=== PATIENT | female | born 1945 | race Caucasian/White ===

== ENCOUNTER 2022-07-28 14:35 | Emergency (ER) | payer MEDICARE, SELFPAY ==
--- NOTE | ~2022-07-28 | CT_ITS ---
EXAMINATION: CT HEAD WITHOUT CONTRAST CLINICAL INFORMATION: Dizziness COMPARISON: None available. TECHNIQUE: Contiguous axial imaging was performed from the skull base to vertex without intravenous administration of contrast. This CT examination was performed using dose optimization techniques as appropriate, variously including the following: *Automated exposure control *Adjustment of mA and/or kV according to patient size (this includes techniques or standardized protocols for targeted exams where dose is matched to indication/reason for exam; i.e. extremities or head) *Use of iterative reconstruction technique DLP: 596 mGy-cm FINDINGS: There is no evidence of acute intracranial hemorrhage or territorial infarction. No abnormal mass effect or midline shift is seen. [place] to white matter differentiation is well preserved. No extra-axial fluid collections are identified. The ventricles are normal in size. No abnormal attenuation in the brain parenchyma. No acute calvarial fracture.. Paranasal sinuses and mastoid air cells are well-aerated. CT/CT head/brain wo IV con IMPRESSION: No CT evidence of acute intracranial hemorrhage or edematous territorial infarction. Etiology of the patient's symptoms has not been determined by noncontrast CT. Additional imaging as clinically warranted.
[2022-07-28 14:59] VITALS: BP 146/74; PULSE 61; RESP 17; TEMP 36.2; O2SAT 100; BMI 24.5
--- NOTE | 2022-07-28 15:02 | ED_ITS ---
HPI - General Adult General Chief complaint: Dizziness <SABINA Overton - Last Filed: 07/28/22 15:03> Stated complaint: Dizziness sent by walk in <SABINA Overton - Last Filed: 07/28/22 15:03> Time Seen by Provider: 07/28/22 18:03 <SABINA Overton - Last Filed: 07/28/22 15:03> Source: patient <Mohit Diaz MD - Last Filed: 07/28/22 19:07> Mode of arrival: ambulatory <Mohit Diaz MD - Last Filed: 07/28/22 19:07> Limitations: no limitations <Mohit Diaz MD - Last Filed: 07/28/22 19:07> History of Present Illness HPI narrative: 76-year-old female presents with dizziness. Her symptoms started several weeks ago. Symptoms are intermittent. They are moderate to severe. They are worse when lying on her left side. The symptoms do not radiate. There is no nausea vomiting. There has been no falls or trauma. No focal neurologic defici ts. She does report some hearing changes the left side. She also reports some blurred vision of the left eye but that is since cataract surgery was performed. She also complains of a moderate left-sided headache. She describes as a migraine. There is no photo or phonophobia. There is no clear relieving or exacerbating features. The pain does not radiate. Is no nausea vomiting. Patient attempted to get into ENT but not until October. <Mohit Diaz MD - Last Filed: 07/28/22 19:07> Related Data Home medications: Home Medications Medication Instructions Recorded Confirmed ibuprofen 800 mg tablet 800 mg PO TID 07/28/22 isosorbide dinitrate 10 mg tablet 10 mg PO BID 07/28/22 levothyroxine 125 mcg tablet mcg PO 07/28/22 metoprolol succinate 25 mg 25 mg PO DAILY 07/28/22 tablet,extended release 24 hr metoprolol succinate 50 mg 50 mg PO DAILY 07/28/22 tablet,extended release 24 hr rosuvastatin 10 mg tablet 10 mg PO BEDTIME 07/28/22 tacrolimus 0.1 % topical ointment topical 07/28/22 Previous Rx's Medication Instructions Recorded meclizine 25 mg tablet 25 mg PO TID PRN dizziness #14 tabs 07/28/22 ondansetron 4 mg disintegrating 4 mg PO Q8H PRN nausea and 07/28/22 tablet vomiting #10 tabs <SABINA Overton - Last Filed: 07/28/22 15:03> Allergies/adverse reactions: Allergies Allergy/AdvReac Type Severity Reaction Status Date / Time aspirin Allergy Unknown bleed Verified 07/28/22 13:52 <SABINA Overton - Last Filed: 07/28/22 15:03> [facility] Social History Social History: Social History Alcohol intake: current Patient Tobacco Use Status: Former Tobacco user Smoked in Last 30 Days: No Use of substances other than those prescribed or required for medical reasons: No Advance Directives: No Advance Directives Information Provided: No <SABINA Overton - Last Filed: 07/28/22 15:03> Physical Exam ED Vital Signs: Vital Signs - 24 hr 07/28/22 14:59 07/28/22 17:53 Temperature 97.2 F Pulse Rate 61 66 Respiratory Rate 17 20 Blood Pressure 146/74 H Pulse Oximetry 100 99 Oxygen Delivery Method Room Air Room Air BMI result Body Mass Index 24.5 <SABINA Overton - Last Filed: 07/28/22 15:03> Vital Signs - 24 hr 07/28/22 14:59 07/28/22 17:53 Temperature 97.2 F Pulse Rate 61 66 Respiratory Rate 17 20 Blood Pressure 146/74 H Pulse Oximetry 100 99 Oxygen Delivery Method Room Air Room Air BMI result Body Mass Index 24.5 <Mohit Diaz MD - Last Filed: 07/28/22 19:07> GEN: Well developed, no acute distress, alert, oriented HEENT: Normocephalic, atraumatic, normal external ears, nose appears normal, no oropharyngeal edema or exudates Eyes: Normal to appearance, no nystagmus Neck: Supple, no lymphadenopathy Respiratory: Talks in complete sentences, no respiratory distress, clear to auscultation bilaterally Cardiovascular: Regular rate and rhythm, no murmurs rubs or gallops Abdomen: Soft, nontender, nondistended, no guarding, no rebound Back: No CVA tenderness Extremities: No clubbing cyanosis or edema Neurologic: No focal neurologic deficits, cranial nerves 2-12 intact, strength is 5/5 bilaterally, gait normal Skin: No rash <Mohit Diaz MD - Last Filed: 07/28/22 19:07> Course Course Course Narrative: RME performed by Felicia Tellez PA-C. Patient is a 76 year old assigned female at presenting to the emergency department with dizziness and feeling like her ears are full. Patient was seen in the urgent care where they d etermined that her ears were clear and she should have a head CT. Labs and imaging ordered. Patient placed back in the waiting room pending room availability and results. <SABINA Overton - Last Filed: 07/28/22 15:03> Reevaluation(s) Reevaluation #1: Laboratory analysis not reveal any definite etiology of her symptoms. However, patient does describe left headache. This could be concerning for temporal arteritis. Will order an ESR at this time. <Mohit Diaz MD - Last Filed: 07/28/22 19:07> Time: 18:20 <Mohit Diaz MD - Last Filed: 07/28/22 19:07> Reevaluation #2: ESR is back. His 12. There is no evidence of temporal arteritis. I discussed all results and discharge instructions with the patient. She is ready to go home. <Mohit Diaz MD - Last Filed: 07/28/22 19:07> Time: 19:07 <Mohit Diaz MD - Last Filed: 07/28/22 19:07> Medical Decision Making Medical Decision Making MDM Narrative: 76-year-old female presents with vertigo and headache. Symptoms started several weeks ago. They have been progressively getting worse. Examination revealed no focal neurologic deficits. There is no nystagmus. There is no evidence of acute otitis media or externa. Possible diagnoses include migraine, vertigo, peripheral vertigo, BPPV, labyrinthitis, vestibular neuritis, Meniere's disease, temporal arteritis. Patient will have lab work and a CT scan to rule out mass effect. Will re-evaluate patient. Patient does not want any medications at this time as she is otherwise asymptomatic. <Mohit Diaz MD - Last Filed: 07/28/22 19:07> Differential Diagnosis Differential Diagnoses: The differential diagnosis associated with the presentation includes ( migraine, vertigo, peripheral vertigo, BPPV, labyrinthitis, vestibular neuritis, Meniere's disease, temporal arteritis) <Mohit Diaz MD - Last Filed: 07/28/22 19:07> Vertigo, headache <Mohit Diaz MD - Last Filed: 07/28/22 19:07> Admission/Observation Consideration of admission/observation: Escalation of care including admission/observation considered <Mohit Diaz MD - Last Filed: 07/28/22 19:07> Lab Data MDM Lab Attestation statement: I reviewed the patient's lab results. <Mohit Diaz MD - Last Filed: 07/28/22 19:07> Result Diagrams: 07/28/22 15:08 07/28/22 15:08 <SABINA Overton - Last Filed: 07/28/22 15:03> Labs: Lab Results 07/28/22 07/28/22 07/28/22 Range/Units 15:08 15:08 18:20 WBC 8.1 (4.8-10.8) X10*3/uL RBC 4.51 (4.20-5.50) X10*6/uL Hgb 13.8 (12.0-16.0) g/dl Hct 41.7 (37.0-47.0) % MCV 92.5 (80.0-98.0) fL MCH 30.6 (27.0-33.0) pg MCHC 33.1 (31.0-35.0) g/dl RDW 13.7 (11.0-16.0) % Plt Count 269 (160-400) X10*3/uL MPV 9.7 (9.4-12.3) fL Immature Gran % (Auto) 0.4 (0.0-0.4) % Neut % (Auto) 66.1 (45-73) % Lymph % (Auto) 20.8 (20-40) % [place] % (Auto) 9.5 (2-11) % Eos % (Auto) 2.5 (0-4) % Baso % (Auto) 0.7 (0-2) % Lymph # (Auto) 1.7 (1.2-4.9) X10*3/uL [place] # (Auto) 0.8 (0.1-1.2) X10*3/uL Eos # (Auto) 0.2 (0.0-0.4) X10*3/uL Baso # (Auto) 0.1 (0.0-0.2) X10*3/uL Abs Immat Gran (auto) 0.03 (0.00-0.03) X10*3/uL Absolute Neuts (auto) 5.4 (2.0-8.3) x10*3/uL Absolute Nucleated RBC 0.000 (0.0-0.012) X10*3/uL Nucleated RBC % (auto) 0.0 (0.0-0.2) /100WBC ESR 12 (0-20) MM/HR Sodium 141 (135-145) mmol/L Potassium 4.6 (3.3-5.1) mmol/L Chloride 109 H (96-108) mmol/L Carbon Dioxide 25 (22-29) mmol/L Anion Gap 12 (12-20) BUN 21 H (9-16) mg/dL Creatinine 1.10 (0.5-1.4) mg/dL Estim Creat Clear Calc 40.7 Estimated GFR 48 Random Glucose 93 (60-115) mg/dL Calcium 8.9 (8.4-10.2) mg/dL Magnesium 2.3 (1.6-2.6) mg/dL Total Bilirubin 0.5 (0.0-1.0) mg/dL AST 20 (5-31) U/L ALT 24 (0-31) U/L Alkaline Phosphatase 92 (39-117) U/L Total Protein 7.0 (6.5-8.0) g/dL Albumin 3.8 (3.5-5.0) g/dL <SABINA Overton - Last Filed: 07/28/22 15:03> Lab Results 07/28/22 07/28/22 07/28/22 Range/Units 15:08 15:08 18:20 WBC 8.1 (4.8-10.8) X10*3/uL RBC 4.51 (4.20-5.50) X10*6/uL Hgb 13.8 (12.0-16.0) g/dl Hct 41.7 (37.0-47.0) % MCV 92.5 (80.0-98.0) fL MCH 30.6 (27.0-33.0) pg MCHC 33.1 (31.0-35.0) g/dl RDW 13.7 (11.0-16.0) % Plt Count 269 (160-400) X10*3/uL MPV 9.7 (9.4-12.3) fL Immature Gran % (Auto) 0.4 (0.0-0.4) % Neut % (Auto) 66.1 (45-73) % Lymph % (Auto) 20.8 (20-40) % [place] % (Auto) 9.5 (2-11) % Eos % (Auto) 2.5 (0-4) % Baso % (Auto) 0.7 (0-2) % Lymph # (Auto) 1.7 (1.2-4.9) X10*3/uL [place] # (Auto) 0.8 (0.1-1.2) X10*3/uL Eos # (Auto) 0.2 (0.0-0.4) X10*3/uL Baso # (Auto) 0.1 (0.0-0.2) X10*3/uL Abs Immat Gran (auto) 0.03 (0.00-0.03) X10*3/uL Absolute Neuts (auto) 5.4 (2.0-8.3) x10*3/uL Absolute Nucleated RBC 0.000 (0.0-0.012) X10*3/uL Nucleated RBC % (auto) 0.0 (0.0-0.2) /100WBC ESR 12 (0-20) MM/HR Sodium 141 (135-145) mmol/L Potassium 4.6 (3.3-5.1) mmol/L Chloride 109 H (96-108) mmol/L Carbon Dioxide 25 (22-29) mmol/L Anion Gap 12 (12-20) BUN 21 H (9-16) mg/dL Creatinine 1.10 (0.5-1.4) mg/dL Estim Creat Clear Calc 40.7 Estimated GFR 48 Random Glucose 93 (60-115) mg/dL Calcium 8.9 (8.4-10.2) mg/dL Magnesium 2.3 (1.6-2.6) mg/dL Total Bilirubin 0.5 (0.0-1.0) mg/dL AST 20 (5-31) U/L ALT 24 (0-31) U/L Alkaline Phosphatase 92 (39-117) U/L Total Protein 7.0 (6.5-8.0) g/dL Albumin 3.8 (3.5-5.0) g/dL <Mohit Diaz MD - Last Filed: 07/28/22 19:07> Independent Interpretation I performed an independent interpretation of an: CT Scan (CT head, no acute disease process) <Mohit Diaz MD - Last Filed: 07/28/22 19:07> Radiology Impression Discussion of test interpretation with radiology: I have reviewed the radiologist's reading. ( CT/CT head/brain wo IV con IMPRESSION: No CT evidence of acute intracranial hemorrhage or edematous territorial infarction. Etiology of the patient's symptoms has not been determined by noncontrast CT. Additional imaging as clinically warranted. Dictated By:Ayaz Yee) <Mohit Diaz MD - Last Filed: 07/28/22 19:07> Tests considered The following testing was considered but not selected: MRI <Mohit Diaz MD - Last Filed: 07/28/22 19:07> Prescription Management I considered prescription management with: Other (Antivert) <Mohit Diaz MD - Last Filed: 07/28/22 19:07> Chronic Conditions Patient?s care impacted by: Hypertension <Mohit Diaz MD - Last Filed: 07/28/22 19:07> Discharge Plan Discharge Clinical Impression: Dizziness, Headache <SABINA Overton - Last Filed: 07/28/22 15:03> Patient Disposition: Home, Self-Care <SABINA Overton - Last Filed: 07/28/22 15:03> Instructions: Vertigo (ED), Acute Headache (ED), Dizziness (ED) <SABINA Overton - Last Filed: 07/28/22 15:03> Prescriptions: New meclizine 25 mg tablet 25 mg PO TID PRN (Reason: dizziness) Qty: 14 0RF ondansetron 4 mg tablet,disintegrating 4 mg PO Q8H PRN (Reason: nausea and vomiting) Qty: 10 0RF No Action levothyroxine 125 mcg tablet PO rosuvastatin 10 mg tablet 10 mg PO BEDTIME metoprolol succinate 50 mg tablet extended release 24 hr 50 mg PO DAILY ibuprofen 800 mg tablet 800 mg PO TID tacrolimus 0.1 % ointment topical isosorbide dinitrate 10 mg tablet 10 mg PO BID metoprolol succinate 25 mg tablet extended release 24 hr 25 mg PO DAILY <SABINA Overton - Last Filed: 07/28/22 15:03> Referrals: Angelo Gaviria MD [Primary Care Provider] - 1 week <SABINA Overton - Last Filed: 07/28/22 15:03>
[2022-07-28 15:13] LABS: MANUAL DIFF FLAG NO
[2022-07-28 15:14] LABS: Basophils Absolute Auto 0.1 X10*3/uL (0.0-0.2); Basophils Percent Auto 0.7 % (0-2); Eosinophils Absolute Auto 0.2 X10*3/uL (0.0-0.4); Eosinophils Percent Auto 2.5 % (0-4); Hematocrit 41.7 % (37.0-47.0); Hemoglobin 13.8 g/dl (12.0-16.0); Imm Gran Abs Auto 0.03 X10*3/uL (0.00-0.03); Imm Gran Pct Auto 0.4 % (0.0-0.4); Lymphocytes Absolute Auto 1.7 X10*3/uL (1.2-4.9); Lymphocytes Percent Auto 20.8 % (20-40); Mean Corpuscular HGB Conc 33.1 g/dl (31.0-35.0); Mean Corpuscular Hemoglobin 30.6 pg (27.0-33.0); Mean Corpuscular Volume 92.5 fL (80.0-98.0); Mean Platelet Volume 9.7 fL (9.4-12.3); Monocytes Absolute Auto 0.8 X10*3/uL (0.1-1.2); Monocytes Percent Auto 9.5 % (2-11); Neutrophils Absolute Auto 5.4 x10*3/uL (2.0-8.3); Neutrophils Percent Auto 66.1 % (45-73); Platelet Count 269 X10*3/uL (160-400); Red Blood Count 4.51 X10*6/uL (4.20-5.50); Red Cell Distribution Width 13.7 % (11.0-16.0); White Blood Count 8.1 X10*3/uL (4.8-10.8)
[2022-07-28 15:34] LABS: Alanine Aminotransferase 24 U/L (0-31); Albumin Level 3.8 g/dL (3.5-5.0); Alkaline Phosphatase 92 U/L (39-117); Anion Gap 12 (12-20); Aspartate Amino Transferase 20 U/L (5-31); Bilirubin Total 0.5 mg/dL (0.0-1.0); Blood Urea Nitrogen 21 mg/dL (9-16); Calcium 8.9 mg/dL (8.4-10.2); Carbon Dioxide 25 mmol/L (22-29); Chloride 109 mmol/L (96-108); Creatinine Clr Calc Pharmacy 40.7; Estimated Glomerular Filt Rate 48; Glucose Random 93 mg/dL (60-115); Magnesium 2.3 mg/dL (1.6-2.6); Potassium 4.6 mmol/L (3.3-5.1); Sodium 141 mmol/L (135-145)
[2022-07-28 17:53] VITALS: PULSE 66; RESP 20; O2SAT 99
[2022-07-28 19:03] LABS: Erythrocyte Sedimentation Rate 12 MM/HR (0-20)
[2022-07-28 19:23] VITALS: BP 154/79; PULSE 74; RESP 14; TEMP 36.4; O2SAT 100
--- NOTE | 2022-07-28 19:23 | PC.NURSE ---
Pt aox4 in no apparent distress. Discharge instructions reviewed with pt. Pt verbalizes understanding.
== END 2022-07-28 19:24 | disposition home or self-care (01) ==
PROVIDERS: Physician Assistant Medical; Emergency Provider Emergency Medicine; PCP Family Medicine
DX: R42 Dizziness and giddiness (principal); R51.9 Headache, unspecified; Z79.02 Long term (current) use of antithrombotics/antiplatelets; Z79.899 Other long term (current) drug therapy
CPT/HCPCS: 36415; 70450; 80053; 83735; 85025; 85652; 99284

== ENCOUNTER 2023-02-08 09:18 | Outpatient (AMB) | payer MEDICARE, SELFPAY ==
--- NOTE | 2023-02-08 09:43 | MHC.OFFWIV ---
Intake Vital Signs 02/08/23 09:45 Weight 154 lb BP 120/70 Blood Pressure Location Rt brachial Position Sitting Pulse 63 Pulse Source Pulse Oximeter Pulse Oximetry (%) 96 Oxygen Delivery Method Room Air Intake Visit Reasons: EST/cough,concerns of lyme(masked lobby) Intake Note: Patient here for cough and coughing up yellow phlegm, chest pain and very fatigued. she also has a concern of possible lyme disease as she was doing yard work about 1 month ago and a few weeks later she noticed a big red [place] with a dot in the middle on that area. Patient Tobacco Use Status: Former Tobacco user Allergies aspirin Allergy (Unknown, Verified 02/08/23 09:48) bleed Do you need a note to return to daycare/school/sports/work: No HPI HPI Comments History of Present Illness Details 77-year-old female who presents for cough. Patient has had a productive cough for the last days. Denies fevers chills history of pneumonia. In addition she also like to recheck from heart disease. She someone the grass, ago noticed a bull's-eye rash did not think much of it since then she has been experiencing increasing drained pain rashes and fatigue. [facility] Social History Alcohol intake: current Patient Tobacco Use Status: Former Tobacco user Review of Systems Const All systems reviewed & are unremarkable except as noted in HPI and below Resp Reports cough and Reports excessive phlegm production Skin/Breast Reports rash Physical Exam Vital Signs: Last Vital Signs Pulse 63 02/08/23 09:45 BP 120/70 02/08/23 09:45 Pulse Ox 96 02/08/23 09:45 Oxygen Delivery Method Room Air 02/08/23 09:45 Const General: healthy appearing, comfortable, no acute distress and alert Orientation/consciousness: patient oriented x3 Limitations: no limitations HEENT Head: Yes normal to inspection Ears: hearing grossly normal bilaterally Resp Effort & Inspection: normal respiratory effort and able to speak in complete sentences Auscultation: clear to auscultation bilaterally Cardio Rate: regular rate Skin General skin exam: no rashes or lesions noted Neuro General: patient oriented x3 Extrem General: Yes normal to inspection Assessment & Plan Assessment & Plan (1) Cough: Code(s): R05.9 - Cough, unspecified Plan VSs found exam patient presents alert and oriented no acute distress exam is otherwise unremarkable noted above. Will provide CXR and lyme testing. Discharge instructions, follow up and treatment are discussed with patient in my usual fashion. Alternatives in treatment are also discussed. The patient will return for worsening symptoms or as needed. Advised that any labs/imaging ordered will be followed up on and contact made if further treatment needed. Counseled that patient's condition may require further evaluation and/or treatment. Symptoms of concern for worsening disorder discussed in detail in my customary manner. Patient does verbalize understanding of the plan, there are no apparent barriers to communication. The patient is given the opportunity to ask questions and have them answered to his/her satisfaction Orders: Orders XR chest 2V Today R05.9 - Cough, unspecified Lyme IgG/IgM w/reflex to WB Today R21 - Rash and other nonspecific skin eruption Coding Level of Care Code Est Pt Level 3 (79487) Diagnoses Cough R05.9
[2023-02-08 09:45] VITALS: BP 120/70; PULSE 63; O2SAT 96
== END 2023-02-08 10:28 | disposition home or self-care (01) ==
PROVIDERS: PCP Family Medicine; Visit Provider Physician Assistant
DX: R05.9 Cough, unspecified (principal)
CPT/HCPCS: 99213

== ENCOUNTER 2023-02-08 10:13 | Outpatient (REF) | payer MEDICARE, SELFPAY ==
--- NOTE | ~2023-02-08 | XR_ITS ---
EXAMINATION: XR CHEST CLINICAL INFORMATION: Cough COMPARISON: None available. TECHNIQUE: 2 views of the chest were obtained. FINDINGS: No significant abnormality is noted involving the heart, lungs, mediastinum, bony thorax or soft tissues. XR/XR chest 2V IMPRESSION: No acute disease.
[2023-02-09 22:23] LABS: Lyme Abs Screen <0.90 index
== END 2023-02-08 10:14 | disposition home or self-care (01) ==
LOC: HO.HMGCX 10:13
PROVIDERS: PCP Family Medicine; Visit Provider Physician Assistant
DX: R05.9 Cough, unspecified (principal); R21 Rash and other nonspecific skin eruption
CPT/HCPCS: 36415; 71046; 86617; 86618

== ENCOUNTER 2024-10-16 14:00 | Outpatient (AMB) | payer MEDICARE, SELFPAY ==
--- NOTE | 2024-10-16 14:24 | AM.OFFWIN_ITS ---
Intake Vital Signs 10/16/24 14:25 Height 5 ft 6 in Weight 148 lb BMI 23.9 BP 100/82 Blood Pressure Location Lt brachial Position Sitting Pulse 71 Pulse Source Pulse Oximeter Temp 97.5 F Temp Source Oral Pulse Oximetry (%) 96 Intake Visit Reasons: EP Trouble urinating, trouble moving bowels Patient Tobacco Use Status: Former Tobacco user [employer] Required: No Allergies aspirin Allergy (Unknown, Verified 10/16/24 14:35) bleed Do you need a note to return to daycare/school/sports/work: No HPI HPI Comments History of Present Illness Details History of Present Illness - The patient is a 78-year-old female pr esenting with urinary tract infection and constipation. - She has a history of recurrent urinary tract infections, previously treated with nitrofurantoin, and recently with Macrobid. - She states that she has not been able to urinate. She has been only dribbling a few drops when she goes. - Has been having frequency and urgency. - She has burning with urination. - She denies fever, chills, CP, SOB, abd pain, constipation - Constipation has been ongoing for two weeks, with infrequent bowel movements and pellet-like stools. - She experienced a significant weight l oss due to a recent episode of diarrhea. - Now has been constipated and has one h ad one bowel movement in the past 2 weeks. - She does pass gas. She has no blood. - She has no melena or hemtochezia. - Her diet is limited, primarily consist ing of cheese and pizza, which may exacerbate constipation. - She has no hemorrhoids, abd pain, or d iarrhea. - Has tried glycerine with no relief of her symptoms. Physical Exam General: Cooperative, healthy appearing, comfortable, no acute distress and well developed Orientation: Patient oriented x3 Limitations: No limitations Head: Normal to inspection Ears: Hearing grossly normal bilaterally Nose: Normal external nose present Face and sinus: Normal facial exam Eyes: Appearance normal, both eyes and all related structures Neck: Normal visual inspection and Yes full ROM Respiratory: Normal respiratory effort and able to speak in complete sentences. Clear to auscultation bilaterally Cardiovascular: Regular rate and rhythm. Normal S1 and S2 GI: Bloated, soft to palpation, and nontender Skin: No rashes or lesions noted Neuro: Patient oriented x3 Extremities: Normal to inspection Patient was informed and verbally consented to the use of an ambient scribe for clinic note documentation during this visit. [facility] Social History Alcohol intake: current Patient Tobacco Use Status: Former Tobacco user Review of Systems Const All systems reviewed & are unremarkable except as noted in HPI and below Physical Exam Vital Signs: Last Vital Signs Temp 97.5 F 10/16/24 14: Pulse 71 10/16/24 14: BP 100/82 10/16/24 14: Pulse Ox 96 10/16/24 14: BMI result Body Mass Index 23.9 Results AMB Urinalysis, Automated UA Leukoctes 500 Piyl/uL Last Edit by Kadie Hernandez CMA on 10/16/24 14:39 UA Nitrite Positive Last Edit by Kadie Hernandez, DONTAE on 10/16/24 14:39 UA Urobilinogen 0.2 mg/dL Last Edit by Kadie Hernandez, DONTAE on 10/16/24 14:39 UA Protein 30 mg/dL Last Edit by Kadie Hernandez CMA on 10/16/24 14:39 UA pH 6.0 Last Edit by Kadie Hernandez, DONTAE on 10/16/24 14:39 UA Blood 80 Manny/uL Last Edit by Kadie Hernandez, DONTAE on 10/16/24 14:39 UA Specific [place] 1.025 Last Edit by Kadie Hernandez CMA on 10/16/24 14:39 UA Ketone Negative Last Edit by Kadie Hernandez CMA on 10/16/24 14:39 UA Bilirubin 0 mg/dL Last Edit by Kadie Hernandez CMA on 10/16/24 14:39 UA Glucose 0 mg/dL Last Edit by Kadie Hernandez CMA on 10/16/24 14:39 Results Reviewed Results Reviewed: Laboratory Last Values Urine pH (Auto) 6.0 10/16/24 14:37 Specific [place] (Auto) 1.025 10/16/24 14:37 Urine Protein (Auto) 30 mg/dL 10/16/24 14:37 Glucose (UA)(Auto) 0 mg/dL 10/16/24 14:37 Urine Ketones (Auto) Negative 10/16/24 14:37 Urine Blood (Auto) 80 Manny/uL 10/16/24 14:37 Urine Nitrite (Auto) Positive 10/16/24 14:37 Urine Bilirubin (Auto) 0 mg/dL 10/16/24 14:37 Urine Urobilinogen (Auto) 0.2 mg/dL 10/16/24 14:37 Leukocyte Esterase (Auto) 500 Pily/uL 10/16/24 14:37 Assessment & Plan Assessment & Plan (1) UTI (urinary tract infection): Code(s): N39.0 - Urinary tract infection, site not specified Qualifiers: Urinary tract infection type: acute cystitis Hematuria presence: with hematuria Qualified Code(s): N30.01 - Acute cystitis with hematuria Plan: Most UTI UA in the office 3+leuko, +nitrates, 2+blood, 1+protein Plan - Prescribe antibiotics twice daily for one week to treat the urinary tract infection. - Perform a urine culture to determine antibiotic resistance and adjust treatment accordingly - Drink lots of fluids - Follow up with urology (2) Constipation: Code(s): K59.00 - Constipation, unspecified Qualifiers: Constipation type: unspecified constipation type Qualified Code(s): K59.00 - Constipation, unspecified Plan Most likely constipation Plan - Recommend Colace, Senna, and MiraLAX for constipation management. - Suggest dietary changes to increase fiber and decrease cheese intake to help relieve constipation. - Advise the patient to watch for symptoms of bowel obstruction and go to the emergency room if necessary. Orders: Orders AMB Urinalysis Automated Today Z13.9 - Encounter for screening, unspecified Medications: New cefuroxime axetil 500 mg PO Q12H 14 tabs 0RF 7 days docusate sodium (Colace) 100 mg PO BID 14 caps 0RF sennosides (senna) 8.6 mg PO BEDTIME 14 caps 0RF polyethylene glycol 3350 (Miralax) 17 grams PO DAILY 119 grams 0RF Coding Level of Care Code Est Pt Level 4 (41160) Diagnoses Acute cystitis with hematuria N30.01 Urinary tract infection type: acute cystitis Hematuria presence: with hematuria Constipation, unspecified constipation type K59.00 Constipation type: unspecified constipation type
[2024-10-16 14:25] VITALS: BP 100/82; PULSE 71; TEMP 36.4; O2SAT 96; BMI 23.9
--- OUTSIDE RECORDS SUMMARY | 2024-10-16 15:18 | XMS_ITS | Clinical Summary ---
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 Name Role Phone Angelo Gaviria MD Primary Care Provider [phone] Family History Medical History Relation Name Comments Breast cancer Other 4 p gr aunts Relation Name Status Comments Other 4 p gr aunts Social History Tobacco Use Types Packs/Day Years Used Date Smoking Tobacco: Never Assessed Comments No Sex and Gender Information Value Date Recorded Sex Assigned at Not on file Legal Sex Female 8:08 AM EST Gender Identity Not on file Sexual Orientation Not on file Obstetrics History Para Term AB IAB SAB Ectopic Multiple Livin g Live Births 1 Date Outcome GA Total Labor Labor/2nd/3rd Weight Sex Type Anes PTL Gina A1 A5 Name Clin Term Plan of Treatment Health Maintenance Due Date Last Done Comments DTaP,Tdap,and Td Vaccines (1 - Tdap) 1964 Zoster Vaccines (1 of 2) 12/06/1995 RSV Immunization Adult Patients (1 - 1-dose 75+ series) 2020 Cholesterol Screening (Lipid Panel) 04/08/2022 Depression Screening 04/08/2022 Falls Risk Assessment 04/08/2022 Hepatitis C Screening 04/08/2022 Medicare Annual Wellness Visit 04/08/2022 Social Influencers of Health Screening 04/08/2022 COVID-19 Vaccine ( season) 2023 05/17/2022, 11/04/2021, 03/11/2021, Additional history exists Hypertension/CHF/CAD Annual BMP Blood Test 07/03/2024 Influenza Vaccine (Season Ended) 2024 Osteoporosis Screening (Bone Density Screening) 03/16/2031 03/16/2021 Pneumococcal Vaccine: 50+ Years Completed 07/04/2022, 04/30/2005, 11/28/2000 HIB Vaccines Aged Out No longer eligi ble based on patient's age to complete this topic HPV Vaccines Aged Out No longer eligi ble based on patient's age to complete this topic Hepatitis A Vaccines Aged Out No long er eligible based on patient's age to complete this topic Hepatitis B Vaccines Aged Out No long er eligible based on patient's age to complete this topic IPV Vaccines Aged Out No longer eligi ble based on patient's age to complete this topic MMR Vaccines Aged Out No longer eligi ble based on patient's age to complete this topic Meningococcal ACWY Vaccine Aged Out N o longer eligible based on patient's age to complete this topic Meningococcal B Vaccine Aged Out No l onger eligible based on patient's age to complete this topic RSV Immunization Patients Under 20 months Aged Out No longer eligible based on patient's age to complete this topic Varicella Vaccines Aged Out No longer eligible based on patient's age to complete this topic Procedures Procedure Name Priority Date/Time Associated Diagnosis Comments DXA BONE DENSITY STUDY 1+ SITS AXIAL SKEL Routine 03/16/2021 11:19 AM EST Asymptomatic menopausal state from Last 3 Months or Most Recently Relevant to Health Maintenance Results * DXA BONE DENSITY STUDY 1+ SITS AXIAL SKEL (03/16/2021 11:19 AM EST) Anatomical Region Laterality Modality Bone Densitometr y 01/11/2021 3:03 PM EDT Narrative 03/17/2021 12:34 PM EST BONE DENSITY (DEXA) Lumbar Spine T-score is 0.1. (SD relative to 20-29 y/o adult) Z-score is 2.5. (SD relative to age matched peers) This is considered normal by WHO criteria. Left Hip T-score is -2.3. Z-score is -0.2. This is considered osteopenia by WHO criteria. Lateral view of the spine demonstrates vertebral heights to be maintained. IMPRESSION: This patient is considered to have osteopenia by WHO criteria. The [facility] Department of Internal Medicine recommends using National Osteoporosis Foundation (NOF) guidelines in treatment decisions related to osteoporosis. NOF guidelines suggest considering treatment for postmenopausal women and men aged 50 or older presenting with the following: History of hip or vertebral fracture. T-score = -2.5 (DXA) at the femoral neck, total hip, or spine, after appropriate evaluation to exclude secondary causes. Low bone mass (T-score between -1.0 and -2.5 at the femoral neck or spine) AND a 10-year probability of a hip fracture = 3% OR a 10-year probability of a major osteoporosis-related fracture = 20% based on the [place]-adapted WHO algorithm Please note that all treatment decisions require clinical judgment and consideration of individual patient factors, including patient preferences, co-morbidities, previous drug use, risk factors not captured in the normal model (e.g., frailty, falls, vitamin D deficiency, increased bone turnover, interval significant decline in bone density) and possible under- or over-estimation of fracture risk by FRAX. Optional alternative screening schedule based on candy Castrejon., [facility] May 18, 2011 for patients with osteopenia (based on hip BMD T-score) is as follows: * advanced osteopenia (T scores -2.00 to -2.49), BMD testing every year * moderate osteopenia (T scores -1.50 to -1.99), BMD testing every 5 years mild osteopenia or normal BMD (T scores -1.50 and higher), BMD testing every 15 years Procedure Note Patrizia Belle MD - 04/18/2022 BONE DENSITY (DEXA) Lumbar Spine T-score is 0.1. (SD relative to 20-29 y/o adult) Z-score is 2.5. (SD relative to age matched peers) This is considered normal by WHO criteria. Left Hip T-score is -2.3. Z-score is -0.2. This is considered osteopenia by WHO criteria. Lateral view of the spine demonstrates vertebral heights to bemaintained. IMPRESSION: This patient is considered to have osteopenia by WHO criteria. The [facility] Department of Internal Medicine recommendsusing National Osteoporosis Foundation (NOF) guidelines in treatment decisions related toosteoporosis. NOF guidelines suggest considering treatment for postmenopausal women and menaged 50 or older presenting with the following: History of hip or vertebral fracture. T-score = -2.5 (DXA) at the femoral neck, total hip, or spine, afterappropriate evaluation to exclude secondary causes. Low bone mass (T-score between -1.0 and -2.5 at the femoral neck or spine)AND a 10-year probability of a hip fracture = 3% OR a 10-year probability of a majorosteoporosis-related fracture = 20% based on the [place]-adapted WHO algorithm Please note that all treatment decisions require clinical judgment andconsideration of individual patient factors, including patient preferences, co- morbidities,previous drug use, risk factors not captured in the normal model (e.g., frailty, falls,vitamin D deficiency, increased bone turnover, interval significant decline in bone density) andpossible under- or over-estimation of fracture risk by FRAX. Optional alternative screening schedule based on candy Castrejon., [facility] for patients with osteopenia (based on hip BMD T-score) is as follows: * advanced osteopenia (T scores -2.00 to -2.49), BMD testing every year * moderate osteopenia (T scores -1.50 to -1.99), BMD testing every 5years mild osteopenia or normal BMD (T scores -1.50 and higher), BMD testingevery 15 years Mike Sorensen MD [facility] [place] DXA PROCEDURES Final R esult from Last 3 Months or Most Recently Relevant to Health Maintenance Insurance [employer] [employer] Care Teams Slate Cutter Relationship Specialty Start Date End Date Angelo Gaviria MD [address] [place] [phone] PCP - General Family Medicine 07/09/24
== END 2024-10-16 15:14 | disposition home or self-care (01) ==
PROVIDERS: PCP Family Medicine; Visit Provider Physician Assistant Medical
DX: N30.01 Acute cystitis with hematuria (principal); K59.00 Constipation, unspecified

== ENCOUNTER → 2024-10-16 14:00 | Outpatient (BNVA) | payer MEDICARE, SELFPAY | PROVIDERS: PCP Family Medicine; Visit Provider Physician Assistant Medical | DX: N30.01 Acute cystitis with hematuria (principal); K59.00 Constipation, unspecified | CPT/HCPCS: 81003; 99212 ==